=== PATIENT | male | born 1990 | race Two or more races ===

== ENCOUNTER 2020-11-20 19:29 | Emergency (ER) | payer OTHER, MEDICAID ==
[~2020-11-20] VITALS: Ht 165.1 cm; Wt 113.4 kg
[2020-11-20 19:39] VITALS: BP 178/88
[2020-11-20] MEDS ORDERED: ONDANSETRON HCL 4 MG/2 ML VIAL IV ONE (20:15)
[2020-11-20] MEDS ORDERED: SODIUM CHLORIDE 0.9% 1,000 ML IV ONE (20:15)
== END 2020-11-20 23:18 | disposition left against medical advice (07) ==
LOC: ER 19:29 → EDSEX 19:29 → ER 23:18
DX: F41.9 Anxiety disorder, unspecified (principal); R11.2 Nausea with vomiting, unspecified
CPT/HCPCS: 96361; 96374; 99283; J2405